=== PATIENT | female | born 2000 | race Hispanic/Latino ===

== ENCOUNTER 2021-08-19 13:51 | Emergency (ER) | payer SELFPAY ==
[~2021-08-19] VITALS: Ht 152.4 cm; Wt 72.6 kg
[2021-08-19] MEDS ORDERED: TETRACAINE HCL 0.5% OPTH SOLN 4 ML BTL ONE (14:58)
[2021-08-19] MEDS ORDERED: FLUORESCEIN SOD(OPTH) 1 MG STRP ONE (14:59)
[2021-08-19] MEDS ORDERED: TOBRAMYCIN 0.3% OPTH OINT 3.5 GM TUBE ONE (15:12)
== END 2021-08-19 15:23 | disposition home or self-care (01) ==
LOC: ER 15:03
DX: H18.822 Corneal disorder due to contact lens, left eye (principal)
CPT/HCPCS: 99284

== ENCOUNTER 2022-04-02 00:26 | Emergency (ER) | payer SELFPAY ==
[~2022-04-02] VITALS: Ht 152.4 cm; Wt 72.6 kg
[2022-04-02 01:15] LABS: BASOPHILS % 0.2 % (0.0-1.0); EOSINOPHILS # (AUTO) 0.1 (0.0-0.4); EOSINOPHILS % 1.1 % (0.0-6.0); HEMATOCRIT 39.9 % (34.2-44.1); HEMOGLOBIN 12.6 g/dL (12.0-16.0); LYMPHOCYTES # (AUTO) 4.2 (1.0-3.2); LYMPHOCYTES % 33.9 % (18.0-39.1); MEAN CORPUSCULAR HEMOGLOBIN 28.6 pg (28-32); MEAN CORPUSCULAR HGB CONC 31.6 g/dL (31-35); MEAN CORPUSCULAR VOLUME 90.5 fL (81-99); MONOCYTES # (AUTO) 0.5 (0.2-0.8); MONOCYTES % 4.4 % (4.4-11.3); NEUTROPHILS # (AUTO) 7.4 (2.1-6.9); NEUTROPHILS % 60.1 % (38.7-80.0); PLATELET COUNT 399 x10e3/uL (140-360); RED BLOOD COUNT 4.41 x10e6/uL (3.6-5.1); RED CELL DISTRIBUTION WIDTH 13.2 % (11.7-14.4)
[2022-04-02 01:36] LABS: ALBUMIN 3.5 g/dL (3.5-5.0); ALBUMIN/GLOBULIN RATIO 0.9 (0.8-2.0); CALCIUM 8.7 mg/dL (8.4-10.2); CREATININE, SERUM 0.69 mg/dL (0.57-1.11)
[2022-04-02 01:44] LABS: CLARITY,URINE SL CLOUDY (CLEAR); COLOR,URINE YELLOW (YELLOW); KETONES,URINE NEGATIVE (NEGATIVE); LEUKOCYTE ESTERASE ,URINE SMALL (NEGATIVE); NITRITE,URINE NEGATIVE (NEGATIVE); PROTEIN,URINE DIPSTICK NEGATIVE (NEGATIVE); URINE UROBILINOGEN 1 mg/dL (0.2 - 1)
[2022-04-02 01:51] LABS: AMORPHOUS SEDIMENT,URINE FEW (FEW); BACTERIA,URINE FEW /HPF; EPITHELIAL CELLS,URINE MANY /LPF; RBC,URINE 0-5 /HPF (0-5)
[2022-04-02] MEDS ORDERED: IOPAMIDOL 370 MG/ML 100 ML INFUS..BTL INJ ONE (01:57)
[2022-04-02] MEDS ORDERED: DICYCLOMINE HCL20 MG PO (03:15)
== END 2022-04-02 03:24 | disposition home or self-care (01) ==
LOC: ER 00:45
DX: R10.33 Periumbilical pain (principal)
CPT/HCPCS: 36415; 74177; 80053; 81001; 81025; 85025; 99284; Q9967